=== PATIENT | female | born 1935 | race Asian ===

== ENCOUNTER 2018-09-15 22:39 | Emergency (ER) | payer MEDICARE, SELFPAY ==
[2018-09-15 22:43] VITALS: BP 168/101; PULSE 69; RESP 22; TEMP 36.8; O2SAT 98
--- NOTE | 2018-09-15 22:53 | DI.RAD.S_ITS ---
PROCEDURE: XR CHEST 1V INDICATIONS: chest pain TECHNIQUE: One view of the chest was acquired. COMPARISON: None. FINDINGS: Surgical changes and devices: None. Lungs and pleura: Lungs are clear. No pleural effusions or pneumothorax. Mediastinum: Mediastinal contours appear normal. Heart size is normal. Bones and chest wall: No suspicious bony lesions. Overlying soft tissues appear unremarkable. IMPRESSION: No acute disease Dictated by: David Paniagua M.D. on 09/16/2018 at 7:57 Approved by: David Paniagua M.D. on 09/16/2018 at 7:58
--- NOTE | 2018-09-15 23:03 | ED.CHESTPAIN ---
HPI - Chest Pain General Chief Complaint: Chest Pain Stated Complaint: chest pain Time Seen by Provider: 09/15/18 22:51 Source: patient and family Mode of arrival: ambulatory Limitations: no limitations History of Present Illness HPI narrative: patient is an 82-year-old female who presents with chest pain. His she has a history of diabetes and hypertension. According to her daughter she has had ongoing thoracic pain is for some time she has been ignoring it however today she says she also has chest pain that started about an hour ago. Seems to go through to her back she feels nauseated as patient is an extremely poor historian daughter is giving most of the information. Difficult to tell if she has had any shortness of breath. No known coronary artery disease. MD complaint: chest pain Duration: constant Related Data Home Medications Medication Instructions Recorded Confirmed CALCIUM CARBONATE/VITAMIN D3 1 cap PO Q DAY #0 08/07/11 (Liquid Calcium 600-Vit D3 Sfgl) [place]/Cu/Glucosamine HCl/M 1 tab PO BID #0 02/02/12 (#GLUCOSAMINE COMPLEX) Fish Oil (#FISH OIL) 1 iu PO BID #0 02/02/12 Previous Rx's Medication Instructions Recorded Test Strips - Freestyle 0 item BID #100 03/16/13 metformin [Glucophage] 0 PO SEE INSTRUCTIONS #150 tab 03/10/16 glipizide 10 mg PO BID #60 tab 04/25/16 Allergies Allergy/AdvReac Type Severity Reaction Status Date / Time lisinopril Allergy Verified 09/15/18 22:50 Penicillins Allergy Verified 09/15/18 22:50 Review of Systems Review of Systems ROS Unobtainable: All systems reviewed & are unremarkable except as noted in HPI and below Constitutional Denies chills, Denies fever(s), Denies lethargy and Denies weakness Cardiovascular Reports as per HPI Gastrointestinal Gastrointestinal: Denies abdominal pain, Reports nausea and Denies vomiting Integumentary/Breasts Denies pruritus, Denies erythema, Denies rash and Denies wounds Neurologic Denies weakness [facility] Surgical History Status post appendectomy Family History Mother Diabetes mellitus Family History Mother Diabetes mellitus Exam Initial Vital Signs Initial Vital Signs: Vital Signs Temperature 98.2 F 09/15/18 22:43 Pulse Rate 69 09/15/18 22:43 Respiratory Rate 22 09/15/18 22:43 Blood Pressure 168/101 H 09/15/18 22:43 Pulse Oximetry 98 09/15/18 22:43 GENERAL: a small petite female with eyes closed but following commands and answering question HEENT: Head atraumatic,EOMI, Neck is supple CARDIOVASCULAR: Regular rate and rhythm without murmurs, rubs or gallops. RESPIRATORY: Breath sounds equal bilaterally, no wheezes rales or rhonchi. ABDOMEN: Soft, nontender. Normoactive bowel sounds all 4 quadrants. No guarding or rebound. EXTREMITIES: Normal range of motion, no clubbing or edema. Neurovascularly intact NEUROLOGICAL: face is symmetric renal social worker strength equal moving all extremities SKIN: Warm, dry, no laceration, no petechiae, no rashes or lesions. Course Orders Ordered: ED Orders 09/15/18 22:53 XR chest 1V Stat 09/15/18 22:54 Complete Blood Count AUTO DIFF Stat Comprehensive Metabolic Panel Stat Lipase Stat Partial Thromboplastin Time Stat Prothrombin Time INR Stat Troponin & CK Cardiac Panel Stat 09/16/18 01:05 Troponin I Stat Vital Signs - 8 hr 09/15/18 22:43 09/15/18 23:31 09/16/18 00:51 Temperature 98.2 F Pulse Rate 69 63 65 Respiratory Rate 22 16 22 Blood Pressure 168/101 H Blood Pressure [Right Arm] 168/52 H 157/53 H Pulse Oximetry 98 100 100 09/16/18 02:30 Temperature Pulse Rate 76 Respiratory Rate 20 Blood Pressure 164/64 H Blood Pressure [Right Arm] Pulse Oximetry 98 MDM - Chest Pain Lab Data Attestation: I reviewed the patient's lab results. Result diagrams: 09/15/18 22:54 09/15/18 22:54 Lab Results 09/15/18 09/15/18 09/15/18 Range/Units 22:54 22:54 22:54 WBC 7.5 (4.5-11.0) X10^3/uL RBC 3.75 L (4.0-5.2) X10^6/uL Hgb 11.6 L (12.0-16.0) g/dL Hct 34.9 L (36-46) % MCV 93.1 (80-100) fL MCH 31.0 (26-34) PG MCHC 33.3 (30-36) % RDW 14.1 (11.6-14.8) % Plt Count 200 (150-400) X10^3/uL Neut % (Auto) Not Reportable Lymph % (Auto) Not Reportable [place] % (Auto) Not Reportable Eos % (Auto) Not Reportable Baso % (Auto) Not Reportable Lymph # (Auto) Not Reportable [place] # (Auto) Not Reportable Baso # (Auto) Not Reportable Total Counted 100 Seg Neutrophils % 21.0 L (38-70) % Lymphocytes % (Manual) 70.0 H (25-45) % Monocytes % (Manual) 7.0 (2-11) % Eosinophils % (Manual) 2.0 (2-4) % Neutrophils # (Manual) 1575 L (1060-0766) /uL RBC Morphology Normal morphology PT 9.7 L (10.1-12.7) SECONDS INR 0.9 (0.9-1.3) APTT 29 (26.4-36.2) SECONDS Sodium 139 (137-145) mmol/L Potassium 4.1 (3.4-5.1) mmol/L Chloride 102 (98-107) mmol/L Carbon Dioxide 27 (22-32) mmol/L BUN 19 H (7-17) mg/dL Creatinine 1.40 H (0.52-1.04) mg/dL Estimated GFR 36.2 L (>60) mL/min BUN/Creatinine Ratio 13.6 (6-22) Glucose 208 H (80-110) mg/dL Calcium 9.7 (8.4-10.2) mg/dL Total Bilirubin 0.3 (0.2-1.3) mg/dL AST 33 (14-36) IU/L ALT 25 (9-52) IU/L Alkaline Phosphatase 51 (38-126) U/L Total Creatine Kinase 52 (30-135) U/L CK-MB (CK-2) TNP CK-MB (CK-2) Rel Index TNP Troponin I < 0.012 (0.01-0.034) ng/mL Total Protein 8.1 (6.3-8.2) g/dL Albumin 4.5 (3.5-5.0) g/dL Globulin 3.6 (1.7-4.1) g/dL Albumin/Globulin Ratio 1.3 (1.0-2.8) Lipase 146 (23-300) U/L 02/14/19 Range/Units 01:05 WBC (4.5-11.0) X10^3/uL RBC (4.0-5.2) X10^6/uL Hgb (12.0-16.0) g/dL Hct (36-46) % MCV (80-100) fL MCH (26-34) PG MCHC (30-36) % RDW (11.6-14.8) % Plt Count (150-400) X10^3/uL Neut % (Auto) Lymph % (Auto) [place] % (Auto) Eos % (Auto) Baso % (Auto) Lymph # (Auto) [place] # (Auto) Baso # (Auto) Total Counted Seg Neutrophils % (38-70) % Lymphocytes % (Manual) (25-45) % Monocytes % (Manual) (2-11) % Eosinophils % (Manual) (2-4) % Neutrophils # (Manual) (8156-9394) /uL RBC Morphology PT (10.1-12.7) SECONDS INR (0.9-1.3) APTT (26.4-36.2) SECONDS Sodium (137-145) mmol/L Potassium (3.4-5.1) mmol/L Chloride (98-107) mmol/L Carbon Dioxide (22-32) mmol/L BUN (7-17) mg/dL Creatinine (0.52-1.04) mg/dL Estimated GFR (>60) mL/min BUN/Creatinine Ratio (6-22) Glucose (80-110) mg/dL Calcium (8.4-10.2) mg/dL Total Bilirubin (0.2-1.3) mg/dL AST (14-36) IU/L ALT (9-52) IU/L Alkaline Phosphatase (38-126) U/L Total Creatine Kinase (30-135) U/L CK-MB (CK-2) CK-MB (CK-2) Rel Index Troponin I < 0.012 (0.01-0.034) ng/mL Total Protein (6.3-8.2) g/dL Albumin (3.5-5.0) g/dL Globulin (1.7-4.1) g/dL Albumin/Globulin Ratio (1.0-2.8) Lipase (23-300) U/L Point of Care Testing Glucose POC 219 Imaging Data Chest x-ray: Attestation: I personally reviewed and interpreted this imaging study as follows: My impression: no acute cardiopulmonary process ECG Data Attestation: I personally reviewed and interpreted this ECG as follows: Interpretation: EKG 1.: Sinus rhythm rate 67 artifact noted no T-wave inversions or ST changes. [place] interval 204 no prior to compare EKG 2. Sinus rhythm rate 63 similar to previous no ST changes or T-wave inversions MDM Narrative Medical decision making narrative: patient suddenly said that she felt better. She apparently was dizzy is was not able to tell us that she is now awake alert sitting no longer has any chest discomfort or back discomfort. She is requesting to go home. EKG show no changes troponins are negative. I recommend that she follow up with her PCP. Discharge Plan Departure Patient Disposition: Home Clinical Impression: Vertigo, Atypical chest pain Discharge Date/Time: 09/16/18 02:00 Interventions: ED Discharge Assessment Last Done: 09/16/18 02:30 Instructions: DI for Atypical Chest Pain Activity Restrictions/Additional Instructions: *You have been diagnosed with vertigo, atypical chest pain *What to do: is continuing to have chest pain may require stress test with your primary care provider *Continue to take medications as directed *Follow up with your primary care provider in 2-3 days *Return to ER if you should have worsening chest pain persistent dizziness increased back pain weakness, passing out or any new, worsening or concerning symptoms Prescriptions: No Action CALCIUM CARBONATE/VITAMIN D3 (Liquid Calcium 600-Vit D3 Sfgl) 1 cap PO Q DAY Qty: 0 RF: 0 Fish Oil (#FISH OIL) 1 iu PO BID Qty: 0 RF: 0 [place]/Cu/Glucosamine HCl/M (#GLUCOSAMINE COMPLEX) 1 tab PO BID Qty: 0 RF: 0 Test Strips - Freestyle BID Qty: 100 RF: 99 metformin [Glucophage] 500 MG tablet PO SEE INSTRUCTIONS Qty: 150 RF: 0 glipizide 10 MG tablet 10 mg PO BID Qty: 60 RF: 0 Referrals: Cristela Wynne DO [Primary Care Provider] -
[2018-09-15 23:09] LABS: Add Manual Diff / Slide Review YES; Hematocrit 34.9 % (36-46); Hemoglobin 11.6 g/dL (12.0-16.0); INR 0.9 (0.9-1.3); Mean Corpuscular HGB Conc 33.3 % (30-36); Mean Corpuscular Volume 93.1 fL (80-100); Platelet Count 200 X10^3/uL (150-400); Prothrombin Time 9.7 SECONDS (10.1-12.7); Red Blood Cell Count 3.75 X10^6/uL (4.0-5.2); Red Cell Distribution Width 14.1 % (11.6-14.8); White Blood Cell Count 7.5 X10^3/uL (4.5-11.0)
[2018-09-15 23:12] LABS: PTT Partial Thromboplastin Tim 29 SECONDS (26.4-36.2)
[2018-09-15 23:13] LABS: Alanine Aminotransferase 25 IU/L (9-52); Albumin 4.5 g/dL (3.5-5.0); Albumin Globulin Ratio 1.3 (1.0-2.8); Alkaline Phosphatase 51 U/L (38-126); Aspartate Aminotransferase 33 IU/L (14-36); BUN Creatinine Ratio 13.6 (6-22); Bilirubin Total 0.3 mg/dL (0.2-1.3); Blood Urea Nitrogen 19 mg/dL (7-17); Calcium 9.7 mg/dL (8.4-10.2); Carbon Dioxide 27 mmol/L (22-32); Chloride 102 mmol/L (98-107); Creatine Kinase 52 U/L (30-135); Estimated Glomerular Filt Rate 36.2 mL/min (>60); Globulin 3.6 g/dL (1.7-4.1); Glucose 208 mg/dL (80-110); HEMOLYSIS < 15 (0-50); Lipase 146 U/L (23-300); Potassium 4.1 mmol/L (3.4-5.1); Sodium 139 mmol/L (137-145); Total Protein 8.1 g/dL (6.3-8.2)
[2018-09-15 23:24] LABS: Troponin I < 0.012 ng/mL (0.01-0.034)
[2018-09-15 23:30] LABS: Neutrophils Absolute Manual 1575 /uL (3000-5900); RBC Morphology Normal Morphology; Total Cells Counted 100
[2018-09-15 23:31] VITALS: BP 168/52; PULSE 63; RESP 16; O2SAT 100
--- NOTE | 2018-09-15 23:54 | PC.NURSE ---
patient states that she feels much better and is ready to go home. she reports that she no longer has chest pain, nausea or dizziness. provider aware and no new orders at this time.
[2018-09-16 00:51] VITALS: BP 157/53; PULSE 65; RESP 22; O2SAT 100
[2018-09-16 01:38] LABS: Troponin I < 0.012 ng/mL (0.01-0.034)
[2018-09-16 02:30] VITALS: BP 164/64; PULSE 76; RESP 20; O2SAT 98
== END 2018-09-16 02:00 | disposition home or self-care (01) ==
PROVIDERS: Emergency Provider Emergency Medicine; Family Provider Family Medicine; PCP Family Medicine
DX: R42 Dizziness and giddiness (principal); R07.89 Other chest pain
CPT/HCPCS: 36415; 36591; 71045; 80053; 82550; 82553; 82962; 83690; 84484; 85025; 85610; 85730; 93005; 99283; 99285

== ENCOUNTER 2019-04-21 21:26 | Emergency (ER) | payer MEDICARE, SELFPAY ==
[2019-04-21 21:34] VITALS: BP 190/67; PULSE 65; RESP 16; TEMP 36.8; O2SAT 100; BMI 23.6
[2019-04-21 21:44] LABS: RBC Urine None Seen (0-5/HPF)
--- NOTE | 2019-04-21 21:44 | ED_ITS ---
HPI - Abdominal Pain General Chief Complaint: Abdominal Pain Stated Complaint: stomach pains Time Seen by Provider: 04/21/19 21:41 Source: patient and family Mode of arrival: Wheelchair Limitations: no limitations History of Present Illness HPI narrative: Patient is a 83-year-old female who presents with abdominal pain. It started just a few hours ago after she ate about 10 pieces of some fruit. The daughter ate the same free currently at 2 pieces and not feel asleep. She feels like her abdomen is distended and she is nauseous. Across her mid abdomen. She had a normal bowel movement and has felt normal throughout the day until now. She nauseous but denies any vomiting she has not had fever chills she denies any chest pain or shortness of breath. MD complaint: abdominal pain Onset (ago): hour(s) Pain Consistency: constant Location: periumbilical Severity: moderate Quality: cramping Migration to: no migration Relieving factors: nothing Exacerbating factors: nothing Related Data Home Medications Medication Instructions Recorded Confirmed calcium carb-vit D3-magnesium 2 cap PO DAILY 04/21/19 04/21/19 glipizide 10 mg PO BID 04/21/19 04/21/19 losartan 50 mg PO BID 04/21/19 04/21/19 lovastatin 40 mg PO DAILY 04/21/19 04/21/19 metformin 1,000 mg PO BID 04/21/19 04/21/19 metoprolol tartrate 25 mg PO BID 04/21/19 04/21/19 pioglitazone 15 mg PO DAILY 04/21/19 04/21/19 Allergies Allergy/AdvReac Type Severity Reaction Status Date / Time lisinopril Allergy Verified 04/21/19 21:39 Penicillins Allergy Verified 04/21/19 21:39 Review of Systems Review of Systems Narrative: GENERAL: Denies chills, fatigue, malaise, fever, sweats, travel HEENT: Denies sinus pain, ear pain, sore throat, difficulty swallowing, neck pain RESPIRATORY: Denies dyspnea, cough, wheezing, hemoptysis, sputum. CARDIOVASCULAR: Denies chest pain, palpitations, orthopnea, edema GASTROINTESTINAL: See HPI : Denies dysuria, frequency, incontinence, hematuria, urinary retention, flank pain. MUSCULOSKELETAL: Denies weakness, joint pain, or bony pain SKIN: No rash, no erythema, no pruritus NEUROLOGIC: Denies weakness, dizziness, headache, numbness, change in speech, confusion PSYCHIATRIC: No concerning psychosocial issues. 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) Stage 3 chronic kidney disease (07/04/13) Vitamin D deficiency (07/04/13) Surgical History Status post appendectomy Family History Mother Diabetes mellitus Social History Smoking Status: Unknown if ever smoked Family History Mother Diabetes mellitus Social History Smoking Status: Unknown if ever smoked Exam Initial Vital Signs Initial Vital Signs: Vital Signs Temperature 98.3 F 04/21/19 21:34 Pulse Rate 65 04/21/19 21:34 Respiratory Rate 16 04/21/19 21:34 Blood Pressure 190/67 H 04/21/19 21:34 Pulse Oximetry 100 04/21/19 21:34 GENERAL: Alert fatigue elderly female appears in discomfort HEENT: Head atraumatic,EOMI, pupils reactive, face symmetric, moist mucous membranes CARDIOVASCULAR: Regular rate and rhythm without murmurs, rubs or gallops. RESPIRATORY: Breath sounds equal bilaterally, no wheezes rales or rhonchi. ABDOMEN: Soft, distended, tender across the mid abdomen both right and left and central. No guarding no rebound no right upper quadrant : No CVA tenderness EXTREMITIES: Normal range of motion, no clubbing or edema. Neurovascularly intact NEUROLOGICAL: Alert and oriented normal speech Cranial nerves II through XII gr ossly intact. SKIN: Warm, dry, no laceration, no petechiae, no rashes or lesions. Course Orders Ordered: ED Orders 04/21/19 21:31 Urine Culture Stat Urine Microscopic Stat 04/21/19 21:39 EKG-12 Lead Stat 04/21/19 21:40 Complete Blood Count AUTO DIFF Stat Comprehensive Metabolic Panel Stat Lipase Stat Partial Thromboplastin Time Stat Prothrombin Time INR Stat 04/21/19 21:53 CT abdomen pelvis wo con Stat Discontinued Medications Morphine Sulfate (Morphine) 2 mg IV NOW ONE Stop: 04/21/19 21:54 Last Admin: 04/21/19 22:01 Dose: 2 mg Documented by: CIELO Ondansetron HCl (Zofran) 4 mg IV NOW ONE Stop: 04/21/19 21:54 Last Admin: 04/21/19 22:00 Dose: 4 mg Documented by: CIELO Vital Signs Vital signs: Vital Signs - 8 hr 04/21/19 21:34 04/21/19 22:00 04/21/19 22:26 Temperature 98.3 F Pulse Rate 65 57 L 60 Respiratory Rate 16 14 17 Blood Pressure 190/67 H Blood Pressure [Left Arm] 188/47 H 182/44 H Pulse Oximetry 100 100 99 04/21/19 23:00 Temperature Pulse Rate 60 Respiratory Rate 20 Blood Pressure Blood Pressure [Left Arm] 147/37 H Pulse Oximetry 99 MDM - Abdominal Pain Lab Data Attestation: I reviewed the patient's lab results. Result diagrams: 04/21/19 21:40 04/21/19 21:40 Labs: Lab Results 04/21/19 04/21/19 04/21/19 Range/Units 21:31 21:40 21:40 WBC 8.5 (4.5-11.0) X10^3/uL RBC 3.53 L (4.0-5.2) X10^6/uL Hgb 11.0 L (12.0-16.0) g/dL Hct 32.5 L (36-46) % MCV 92.1 (80-100) fL MCH 31.3 (26-34) PG MCHC 34.0 (30-36) % RDW 13.2 (11.6-14.8) % Plt Count 210 (150-400) X10^3/uL Neut % (Auto) 29.0 L (50-75) % Lymph % (Auto) 62.8 H (25-40) % [place] % (Auto) 4.8 (3-14) % Eos % (Auto) 2.4 (2-4) % Baso % (Auto) 1.0 (0-2) % Neut # (Auto) 2500 (0789-4076) /uL Lymph # (Auto) 5300 H (0592-9934) /uL [place] # (Auto) 400 (0-900) /uL Eos # (Auto) 200 (0-450) /uL Baso # (Auto) 100 (0-100) /uL PT 9.8 L (10.1-12.7) SECONDS INR 0.9 (0.9-1.3) APTT 31 D (26.4-36.2) SECONDS Sodium (137-145) mmol/L Potassium (3.4-5.1) mmol/L Chloride (98-107) mmol/L Carbon Dioxide (22-32) mmol/L BUN (7-17) mg/dL Creatinine (0.52-1.04) mg/dL Estimated GFR (>60) mL/min BUN/Creatinine Ratio (6-22) Glucose (80-110) mg/dL Calcium (8.4-10.2) mg/dL Total Bilirubin (0.2-1.3) mg/dL AST (14-36) IU/L ALT (9-52) IU/L Alkaline Phosphatase (38-126) U/L Total Protein (6.3-8.2) g/dL Albumin (3.5-5.0) g/dL Globulin (1.7-4.1) g/dL Albumin/Globulin Ratio (1.0-2.8) Lipase (23-300) U/L Urine RBC None seen (0-5/HPF) Urine WBC 10-30/hpf H (0-5/HPF) Ur Squamous Epith Cells 1-5 /hpf (0-5/HPF) Urine Bacteria Moderate (10-30) H (None) Ur Culture Indicated? Specimen cultured 04/21/19 Range/Units 21:40 WBC (4.5-11.0) X10^3/uL RBC (4.0-5.2) X10^6/uL Hgb (12.0-16.0) g/dL Hct (36-46) % MCV (80-100) fL MCH (26-34) PG MCHC (30-36) % RDW (11.6-14.8) % Plt Count (150-400) X10^3/uL Neut % (Auto) (50-75) % Lymph % (Auto) (25-40) % [place] % (Auto) (3-14) % Eos % (Auto) (2-4) % Baso % (Auto) (0-2) % Neut # (Auto) (8525-6249) /uL Lymph # (Auto) (6339-9135) /uL [place] # (Auto) (0-900) /uL Eos # (Auto) (0-450) /uL Baso # (Auto) (0-100) /uL PT (10.1-12.7) SECONDS INR (0.9-1.3) APTT (26.4-36.2) SECONDS Sodium 138 (137-145) mmol/L Potassium 4.3 (3.4-5.1) mmol/L Chloride 102 (98-107) mmol/L Carbon Dioxide 28 (22-32) mmol/L BUN 20 H (7-17) mg/dL Creatinine 1.10 H (0.52-1.04) mg/dL Estimated GFR 47.7 L (>60) mL/min BUN/Creatinine Ratio 18.2 (6-22) Glucose 143 H (80-110) mg/dL Calcium 9.3 (8.4-10.2) mg/dL Total Bilirubin 0.2 (0.2-1.3) mg/dL AST 31 (14-36) IU/L ALT 13 (9-52) IU/L Alkaline Phosphatase 44 (38-126) U/L Total Protein 7.9 (6.3-8.2) g/dL Albumin 4.4 (3.5-5.0) g/dL Globulin 3.5 (1.7-4.1) g/dL Albumin/Globulin Ratio 1.3 (1.0-2.8) Lipase 137 (23-300) U/L Urine RBC (0-5/HPF) Urine WBC (0-5/HPF) Ur Squamous Epith Cells (0-5/HPF) Urine Bacteria (None) Ur Culture Indicated? Point of care testing: Urine Dip Bedside Urine Glucose Negative Bedside Urine Bilirubin - Negative Bedside Urine Ketone - Negative Urine Specific [place] 1.010 Bedside Urine Occult Blood - Negative Bedside Urine pH 6 Bedside Urine Protein - Negative Bedside Urine Urobilinogen - Negative Bedside Urine Nitrite - Negative Bedside Urine Leukocytes + [address] scan - abdomen: Radiologist's impression: medical transcription radiology report: Fluid filled mildly dilated loops of small bowel within the pelvis. This could represent moderate ileus versus early or partial. No clear transition. Cholelithiasis. MDM Narrative Medical decision making narrative: Patient is tolerating water in fact asking for. She has no right upper quadrant pain normal bilirubin and normal liver enzymes. Cholelithiasis less likely to be causing her problem today. She has an ileus and early small-bowel obstruction however not vomiting. Blood work overall reassuring. At this time I recommend she go home with clear liquid diet and return if pain is worsening. I discussed all findings with the patient and daughter, Education has been performed regarding treatment plan, diagnosis, warning signs and symptoms and all concerns have been addressed. Verbally agree with and understood all of the above. Discharge Plan Departure Patient Disposition: Home Clinical Impression: Ileus Discharge Date/Time: 04/21/19 23:35 Instructions: Ileus, Clear Liquid Diet Activity Restrictions/Additional Instructions: *You have been diagnosed with ileus *What to do: Recommend clear liquid diet for the next 1-2 days. Or in till abdominal pain improves. *Continue to take medications as directed *Follow up with your primary care provider in 2-3 days *Return to ER if you should have increasing pain persistent vomiting, inability to tolerate fluids or any new, worsening or concerning symptoms Prescriptions: No Action losartan 50 mg tablet 50 mg PO BID RF: 0 pioglitazone 15 mg tablet 15 mg PO DAILY RF: 0 metformin 500 mg tablet 1,000 mg PO BID RF: 0 glipizide 10 mg tablet 10 mg PO BID RF: 0 lovastatin 40 mg tablet 40 mg PO DAILY RF: 0 metoprolol tartrate 25 mg tablet 25 mg PO BID RF: 0 calcium carb-vit D3-magnesium 250-200-125 mg-unit-mg Capsule 2 cap PO DAILY RF: 0 Referrals: Cristela Wynne DO [Primary Care Provider] - Dimple Rivera PA-C [Non-Staff] -
[2019-04-21 21:50] LABS: Squamous Epithelial Cell Urine 1-5 /HPF (0-5/HPF); WBC Urine 10-30/HPF (0-5/HPF)
[2019-04-21 21:51] LABS: Bacteria Urine Moderate (10-30); Culture Indicated Urine Specimen Cultured
--- NOTE | 2019-04-21 21:53 | DI.CT.S_ITS ---
PROCEDURE: CT ABDOMEN PELVIS WO CON INDICATIONS: ab pain nausea TECHNIQUE: Noncontrast 5 mm thick sections acquired from the diaphragms to the symphysis. 5 mm coronal and sagittal reformats were then performed. For radiation dose reduction, the following was used: automated exposure control, adjustment of mA and/or kV according to patient size. COMPARISON: None. FINDINGS: Image quality: Excellent. ABDOMEN: Lung bases: Lung bases are clear except for a small degree of lung parenchymal scarring medial lung bases.. Heart size is normal. Coronary artery calcifications are prominent. Solid organs: Liver is normal in size. Gallbladder contains a large 2.2 cm densely calcified gallstone showing no evidence of obstruction to the gallbladder or adjacent inflammation. Pancreas is normal in contours. Spleen is normal in size but contains several punctate calcifications consistent with old granulomatous disease. No adrenal nodules. Kidneys are normal in size, without hydronephrosis or nephrolithiasis. Vascular calcifications are prominent including several near the renal pelvis bilaterally. Peritoneum and bowel: Unenhanced bowel loops demonstrate normal wall thickness and caliber. No free fluid or air. Nodes and vessels: No retroperitoneal or mesenteric adenopathy by size criteria. Aorta and inferior vena cava are normal in caliber. Aortic and aortic branch atherosclerotic calcification is prominent in this patient without evidence of aneurysm or dissection. Miscellaneous: No ventral hernias. PELVIS: Genitourinary: Bladder wall thickness is normal. Miscellaneous: No inguinal hernias or adenopathy. A source of reported low abdominal pain bilaterally with nausea is not found. Bones: No suspicious bony lesions. No vertebral body compression fractures. IMPRESSION: The study is somewhat diminished in accuracy by absence of both oral and intravenous contrast within the constraints of the examination no acute disease is found. Note is made of a 2.2 cm large gallstone within the gallbladder lumen without biliary obstruction or adjacent cholecystitis. Relatively prominent atherosclerotic calcification is seen within the aorta and its main tributaries including coronary artery calcifications. No aneurysm or dissection is found. The patient reported maximal pain and nausea centered within the pelvis, and through the pelvis there is no evidence of diverticulitis or appendicitis. Dictated by: Lazarus Scott M.D. on 04/22/2019 at 8:25 Approved by: Lazarus Scott M.D. on 04/22/2019 at 8:32
[2019-04-21 21:56] LABS: Add Manual Diff / Slide Review NO; Basophils Absolute Auto 100 /uL (0-100); Eosinophils Absolute Auto 200 /uL (0-450); Eosinophils Percent Auto 2.4 % (2-4); Hematocrit 32.5 % (36-46); Lymphocytes Absolute Auto 5300 /uL (1100-4500); Lymphocytes Percent Auto 62.8 % (25-40); Mean Corpuscular Hemoglobin 31.3 PG (26-34); Mean Corpuscular Volume 92.1 fL (80-100); Monocytes Absolute Auto 400 /uL (0-900); Monocytes Percent Auto 4.8 % (3-14); Neutrophils Absolute Auto 2500 /uL (1500-7000); Platelet Count 210 X10^3/uL (150-400); Red Blood Cell Count 3.53 X10^6/uL (4.0-5.2); Red Cell Distribution Width 13.2 % (11.6-14.8); White Blood Cell Count 8.5 X10^3/uL (4.5-11.0)
[2019-04-21 21:58] LABS: INR 0.9 (0.9-1.3); Prothrombin Time 9.8 SECONDS (10.1-12.7)
[2019-04-21 22:00] VITALS: BP 188/47; PULSE 57; RESP 14; O2SAT 100
[2019-04-21] MEDS: ONDANSETRON 4 MG/2 ML INJ IV (22:00)
[2019-04-21 22:01] LABS: PTT Partial Thromboplastin Tim 31 SECONDS (26.4-36.2)
[2019-04-21] MEDS: MORPHINE 2 MG/ML INJ IV (22:01)
[2019-04-21 22:03] LABS: Alanine Aminotransferase 13 IU/L (9-52); Albumin 4.4 g/dL (3.5-5.0); Albumin Globulin Ratio 1.3 (1.0-2.8); Alkaline Phosphatase 44 U/L (38-126); Aspartate Aminotransferase 31 IU/L (14-36); BUN Creatinine Ratio 18.2 (6-22); Bilirubin Total 0.2 mg/dL (0.2-1.3); Blood Urea Nitrogen 20 mg/dL (7-17); Calcium 9.3 mg/dL (8.4-10.2); Carbon Dioxide 28 mmol/L (22-32); Chloride 102 mmol/L (98-107); Estimated Glomerular Filt Rate 47.7 mL/min (>60); Globulin 3.5 g/dL (1.7-4.1); Glucose 143 mg/dL (80-110); HEMOLYSIS 27 (0-50); Lipase 137 U/L (23-300); Potassium 4.3 mmol/L (3.4-5.1); Sodium 138 mmol/L (137-145); Total Protein 7.9 g/dL (6.3-8.2)
--- NOTE | 2019-04-21 22:13 | PC.NURSE ---
Family member is on facetime and she is refusing CT scan for pt. Discussed kidney concerns. I informed her that we had tested her kidney function and it was wnl for the exam. She states 'do an xray instead'. I then asked Dr. Gaitan to speak w/ family.
[2019-04-21 22:26] VITALS: BP 182/44; PULSE 60; RESP 17; O2SAT 99
[2019-04-21 23:00] VITALS: BP 147/37; PULSE 60; RESP 20; O2SAT 99
--- NOTE | 2019-04-21 23:19 | PC.NURSE ---
Patient refusing offers for pain meds or nausea medication. Pt states she has no nausea and her pain is minimal. Dr. Gaitan at bedside to discuss CT results. Ok per Dr. Gaitan for pt to drink some water.
== END 2019-04-21 23:35 | disposition home or self-care (01) ==
PROVIDERS: Emergency Provider Emergency Medicine; Family Provider Family Medicine; PCP Family Medicine
DX: K56.7 Ileus, unspecified (principal)
CPT/HCPCS: 36591; 74176; 80053; 81003; 81015; 83690; 85025; 85610; 85730; 87077; 87086; 87186; 93005; 96374; 96375; 99283; 99285; J2270; J2405

== ENCOUNTER 2019-09-13 18:34 | Emergency (ER) | payer MEDICARE, SELFPAY ==
[2019-09-13 18:40] VITALS: BP 138/54; PULSE 86; RESP 18; TEMP 38.3; O2SAT 96
--- NOTE | 2019-09-13 18:45 | DI.RAD.S_ITS ---
PROCEDURE: XR CHEST 1V INDICATIONS: cough and fever TECHNIQUE: One view of the chest was acquired. COMPARISON: [facility], CR, XR CHEST 1V, 09/15/2018, 22:59. FINDINGS: Surgical changes and devices: None. Lungs and pleura: Lungs are clear. No pleural effusions or pneumothorax. Mediastinum: Mediastinal contours appear normal. Heart size is normal. Bones and chest wall: No suspicious bony lesions. Overlying soft tissues appear unremarkable. IMPRESSION: Normal chest, stable. Dictated by: Shy Savage M.D. on 09/13/2019 at 20:10 Approved by: Shy Savage M.D. on 09/13/2019 at 20:11
[2019-09-13 18:52] VITALS: TEMP 38.3
[2019-09-13] MEDS: ACETAMINOPHEN 325 MG TABLET 650 MG PO (18:52)
[2019-09-13 19:17] LABS: Influenza A - CEPHEID Flu A POSITIVE (NEGATIVE); Influenza B - CEPHEID Flu B NEGATIVE (NEGATIVE)
--- NOTE | 2019-09-13 19:20 | ED.FEVER ---
HPI - Fever General Chief Complaint: Fever Stated Complaint: Collapsed Earlier, Condition Worsening Time Seen by Provider: 09/13/19 18:43 Source: patient Mode of arrival: Wheelchair Limitations: no limitations History of Present Illness HPI Narrative: 83-year-old female nonsmoker with history of diabetes and hypertension presents with headache, sore throat some dry cough, fatigue and body aches since yesterday. She felt unwell this morning and got a bit lightheaded and eased herself to the ground, suffering no injury. She was seen and evaluated by her primary care provider and had some blood work drawn which was apparently normal. She was sent home and continues to feel unwell hence decision to be evaluated. MD complaint: fever Onset (ago): day(s) Temperature Source: oral Associated symptoms: chills, headache, sore throat and cough Relieving factors: nothing Exacerbating factors: nothing Treatments prior to arrival fever: none Related Data Home Medications Medication Instructions Recorded Confirmed calcium carb-vit D3-magnesium 2 cap PO DAILY 04/21/19 04/21/19 glipizide 10 mg PO BID 04/21/19 04/21/19 losartan 50 mg PO BID 04/21/19 04/21/19 lovastatin 40 mg PO DAILY 04/21/19 04/21/19 metformin 1,000 mg PO BID 04/21/19 04/21/19 metoprolol tartrate 25 mg PO BID 04/21/19 04/21/19 pioglitazone 15 mg PO DAILY 04/21/19 04/21/19 Previous Rx's Medication Instructions Recorded oseltamivir [Tamiflu] 30 mg PO DAILY #4 cap 09/13/19 Allergies Allergy/AdvReac Type Severity Reaction Status Date / Time lisinopril Allergy Verified 04/21/19 21:39 Penicillins Allergy Verified 04/21/19 21:39 Review of Systems Constitutional Constitutional: Reports chills, Reports fatigue, Reports fever(s), Denies frequent falls, Reports headache(s), Denies lethargy and Reports weakness Eyes Eyes: Denies change in vision, Denies eye discharge, Denies irritation and Denies loss of vision ENT Ears, Nose, Mouth, and Throat: Denies change in voice, Denies dizziness, Reports headache(s), Denies neck pain, Reports sore throat and Denies throat swelling Cardiovascular Cardiovascular: Denies chest pain, Denies irregular heart rhythm, Denies lightheadedness, Denies palpitations, Denies dyspnea, Denies dyspnea on exertion and Denies orthopnea Respiratory Respiratory: Reports cough, Denies dyspnea, Denies dyspnea on exertion and Denies wheezing Gastrointestinal Gastrointestinal: Denies abdominal pain, Denies change in bowel habits, Denies diarrhea, Denies nausea and Denies vomiting Genitourinary Genitourinary: Denies hematuria, Denies flank pain, Denies urinary incontinence and Denies urinary urgency Musculoskeletal Musculoskeletal: Denies back pain, Denies muscle weakness, Denies neck pain, Denies numbness and Denies tingling Integumentary/Breasts Skin/Breast: Denies pruritus, Denies erythema, Denies rash and Denies wounds Neurologic Neurologic: Denies behavioral changes, Denies confusion, Denies dizziness, Denies frequent falls, Reports headache(s), Denies loss of vision, Denies numbness, Denies tingling and Reports weakness Psychiatric Psychiatric: Denies anxiety, Denies behavioral changes, Denies confusion, Denies depression, Denies homicidal ideation and Denies suicidal ideation Endocrine Endocrine: Reports fatigue, Denies flushing and Denies palpitations Hematologic/Lymphatic Hematologic/Lymphatic: Denies easy bruising Allergic/Immunologic Allergic/Immunologic: Denies urticaria, Denies throat swelling and Denies wheezing Patient History Medical History Cataract (04/20/14) Cobalamin deficiency (07/04/13) Hypertension (Acute) Mild aortic sclerosis (04/20/14) 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 Well-nourished, well-developed patient, in mild distress. Resting, most of HPI from family. HEAD: Atraumatic. Normocephalic. EYES: Pupils equal round and reactive. Extraocular motions intact. No scleral icterus. No injection or drainage. ENT: Nose without bleeding, purulent drainage. Throat without erythema, tonsillar hypertrophy or exudate. Airway patent. NECK: Trachea midline. Non tender CARDIOVASCULAR: Regular rate and rhythm without murmurs, gallops, or rubs. RESPIRATORY: Clear to auscultation. Breath sounds equal bilaterally. No wheezes, rales, or rhonchi. GASTROINTESTINAL: Abdomen soft, non-tender, nondistended. EXTREMITIES: No edema or joint tenderness. BACK: Nontender without deformity or crepitance. No flank tenderness. SKIN: No rash or erythema of visible areas Initial Vital Signs Initial Vital Signs: Vital Signs Temperature 101.0 F H 09/13/19 18:40 Pulse Rate 86 09/13/19 18:40 Respiratory Rate 18 09/13/19 18:40 Blood Pressure 138/54 L 09/13/19 18:40 Pulse Oximetry 96 09/13/19 18:40 Course Orders Ordered: ED Orders 09/13/19 19:30 Complete Blood Count AUTO DIFF Stat Comprehensive Metabolic Panel Stat Lactate (Lactic Acid) Stat Lipase Stat Partial Thromboplastin Time Stat Procalcitonin Stat Prothrombin Time INR Stat Troponin & CK Cardiac Panel Stat 09/13/19 20:05 Blood Culture Stat Discontinued Medications Acetaminophen (Tylenol) 650 mg PO NOW ONE Stop: 09/13/19 18:46 Last Admin: 09/13/19 18:52 Dose: 650 mg Documented by: CIELO Sodium Chloride (Normal Saline 0.9%) 1,000 mls @ 1,000 mls/hr IV BOLUS ONE Stop: 09/13/19 20:17 Last Admin: 09/13/19 19:20 Dose: Not Given Documented by: CIELO Sodium Chloride (Normal Saline 0.9%) 1,000 mls @ 150 mls/hr IV BOLUS ONE Stop: 09/14/19 01:57 Last Infusion: 09/13/19 21:00 Dose: 0 mls/hr Documented by: Admin: 09/13/19 20:02 Dose: 150 mls/hr Documented by: LIBRA Oseltamivir Phosphate (Tamiflu) 75 mg PO NOW ONE Stop: 09/13/19 20:18 Last Admin: 09/13/19 20:39 Dose: 75 mg Documented by: LEE Vital Signs Vital signs: Vital Signs - 8 hr 09/13/19 20:10 09/13/19 20:30 09/13/19 21:00 Temperature 98.8 F Pulse Rate 78 73 Respiratory Rate 18 Blood Pressure 131/59 L Blood Pressure [Right Arm] 129/79 Pulse Oximetry 99 MDM - Fever Lab Data Result diagrams: 09/13/19 19:30 09/13/19 19:30 Labs: Lab Results 09/13/19 09/13/19 09/13/19 Range/Units 18:43 19:30 19:30 WBC 7.6 (4.5-11.0) X10^3/uL RBC 3.22 L (4.0-5.2) X10^6/uL Hgb 10.1 L (12.0-16.0) g/dL Hct 30.0 L (36-46) % MCV 93.2 (80-100) fL MCH 31.3 (26-34) PG MCHC 33.6 (30-36) % RDW 13.4 (11.6-14.8) % Plt Count 177 (150-400) X10^3/uL Neut % (Auto) 53.1 (50-75) % Lymph % (Auto) 34.7 (25-40) % [place] % (Auto) 10.1 (3-14) % Eos % (Auto) 1.4 L (2-4) % Baso % (Auto) 0.7 (0-2) % Neut # (Auto) 4100 (0760-7113) /uL Lymph # (Auto) 2700 (4181-0466) /uL [place] # (Auto) 800 (0-900) /uL Eos # (Auto) 100 (0-450) /uL Baso # (Auto) 100 (0-100) /uL PT 11.5 (10.1-12.7) SECONDS INR 1.0 (0.9-1.3) APTT 28 D (26.4-36.2) SECONDS Sodium (137-145) mmol/L Potassium (3.4-5.1) mmol/L Chloride (98-107) mmol/L Carbon Dioxide (22-32) mmol/L BUN (7-17) mg/dL Creatinine (0.52-1.04) mg/dL Estimated GFR (>60) mL/min BUN/Creatinine Ratio (6-22) Glucose (80-110) mg/dL Lactate (0.7-2.1) mmol/L Calcium (8.4-10.2) mg/dL Total Bilirubin (0.2-1.3) mg/dL AST (14-36) IU/L ALT (<35) IU/L Alkaline Phosphatase (38-126) U/L Total Creatine Kinase (30-135) U/L CK-MB (CK-2) CK-MB (CK-2) Rel Index Troponin I (0.01-0.034) ng/mL Total Protein (6.3-8.2) g/dL Albumin (3.5-5.0) g/dL Globulin (1.7-4.1) g/dL Albumin/Globulin Ratio (1.0-2.8) Lipase (23-300) U/L Procalcitonin (<0.5) ng/mL Influenza A (RT-PCR) Flu a positive H (NEGATIVE) Influenza B (RT-PCR) Flu b negative (NEGATIVE) 09/13/19 09/13/19 09/13/19 Range/Units 19:30 19:30 19:30 WBC (4.5-11.0) X10^3/uL RBC (4.0-5.2) X10^6/uL Hgb (12.0-16.0) g/dL Hct (36-46) % MCV (80-100) fL MCH (26-34) PG MCHC (30-36) % RDW (11.6-14.8) % Plt Count (150-400) X10^3/uL Neut % (Auto) (50-75) % Lymph % (Auto) (25-40) % [place] % (Auto) (3-14) % Eos % (Auto) (2-4) % Baso % (Auto) (0-2) % Neut # (Auto) (4557-6976) /uL Lymph # (Auto) (6087-0154) /uL [place] # (Auto) (0-900) /uL Eos # (Auto) (0-450) /uL Baso # (Auto) (0-100) /uL PT (10.1-12.7) SECONDS INR (0.9-1.3) APTT (26.4-36.2) SECONDS Sodium 138 (137-145) mmol/L Potassium 4.0 (3.4-5.1) mmol/L Chloride 104 (98-107) mmol/L Carbon Dioxide 25 (22-32) mmol/L BUN 15 (7-17) mg/dL Creatinine 1.20 H (0.52-1.04) mg/dL Estimated GFR 43.1 L (>60) mL/min BUN/Creatinine Ratio 12.5 (6-22) Glucose 151 H (80-110) mg/dL Lactate 0.8 (0.7-2.1) mmol/L Calcium 9.3 (8.4-10.2) mg/dL Total Bilirubin 0.3 (0.2-1.3) mg/dL AST 35 (14-36) IU/L ALT 19 (<35) IU/L Alkaline Phosphatase 39 (38-126) U/L Total Creatine Kinase 47 (30-135) U/L CK-MB (CK-2) TNP CK-MB (CK-2) Rel Index TNP Troponin I 0.020 (0.01-0.034) ng/mL Total Protein 7.2 (6.3-8.2) g/dL Albumin 4.1 (3.5-5.0) g/dL Globulin 3.1 (1.7-4.1) g/dL Albumin/Globulin Ratio 1.3 (1.0-2.8) Lipase 84 (23-300) U/L Procalcitonin 0.07 (<0.5) ng/mL Influenza A (RT-PCR) (NEGATIVE) Influenza B (RT-PCR) (NEGATIVE) Imaging Data Chest x-ray: Radiologist's Impression: [address] [address] XRay Report Signed Patient: Norma Gee RMR#: [id number] : 8Acct:[id number] Age/Sex: 83 / FDate of Service: 09/13/19 Loc: ED Accession Number: [id number] Procedure: XR chest 1V Ordering Provider: Luc Neves D.O. PROCEDURE: XR CHEST 1V INDICATIONS: cough and fever TECHNIQUE: One view of the chest was acquired. COMPARISON: [facility], CR, XR CHEST 1V, 09/15/2018, 22:59. FINDINGS: Surgical changes and devices: None. Lungs and pleura: Lungs are clear. No pleural effusions or pneumothorax. Mediastinum: Mediastinal contours appear normal. Heart size is normal. Bones and chest wall: No suspicious bony lesions. Overlying soft tissues appear unremarkable. IMPRESSION: Normal chest, stable. Dictated by: Shy Savage M.D. on 09/13/2019 at 20:10 Approved by: Shy Savage M.D. on 09/13/2019 at 20:11 [facility] Narrative Medical decision making narrative: Patient has sudden onset of flu-like symptoms. She has reasuring labs and vitals. CXR shows no pneumonia. She requires no supplemental oxygen. SHe is able to safely ambulate, tolerate orals, and has good social support. Creatinine clearance calculated and renal dosing for tamiflu used. Return precautions given, questions answered to their apparent satisfaction Discharge Plan Departure Patient Disposition: Home Clinical Impression: Influenza A Discharge Date/Time: 09/13/19 21:02 Instructions: DI for Influenza -- Adult Activity Restrictions/Additional Instructions: *You have been diagnosed with [influenza a] *What to do: *Take medications as directed *Follow up with your primary care provider in 2-3 days, call for an appointment. Let them know you were seen in the Emergency Department and that we ask that you be seen in follow up *Return to ER if you should have any new, worsening or concerning symptoms, such as [ ] Prescriptions: New oseltamivir [Tamiflu] 30 mg capsule 30 mg PO DAILY Qty: 4 RF: 0 No Action losartan 50 mg tablet 50 mg PO BID RF: 0 pioglitazone 15 mg tablet 15 mg PO DAILY RF: 0 metformin 500 mg tablet 1,000 mg PO BID RF: 0 glipizide 10 mg tablet 10 mg PO BID RF: 0 lovastatin 40 mg tablet 40 mg PO DAILY RF: 0 metoprolol tartrate 25 mg tablet 25 mg PO BID RF: 0 calcium carb-vit D3-magnesium 250-200-125 mg-unit-mg Capsule 2 cap PO DAILY RF: 0 Referrals: Cristela Wynne DO [Primary Care Provider] -
[2019-09-13 19:40] VITALS: BP 131/59; PULSE 78; RESP 22; O2SAT 96
[2019-09-13 19:56] LABS: Add Manual Diff / Slide Review NO; Basophils Absolute Auto 100 /uL (0-100); Basophils Percent Auto 0.7 % (0-2); Eosinophils Absolute Auto 100 /uL (0-450); Eosinophils Percent Auto 1.4 % (2-4); Hemoglobin 10.1 g/dL (12.0-16.0); Lymphocytes Absolute Auto 2700 /uL (1100-4500); Lymphocytes Percent Auto 34.7 % (25-40); Mean Corpuscular HGB Conc 33.6 % (30-36); Mean Corpuscular Hemoglobin 31.3 PG (26-34); Mean Corpuscular Volume 93.2 fL (80-100); Monocytes Absolute Auto 800 /uL (0-900); Monocytes Percent Auto 10.1 % (3-14); Neutrophils Absolute Auto 4100 /uL (1500-7000); Neutrophils Percent Auto 53.1 % (50-75); Platelet Count 177 X10^3/uL (150-400); Red Blood Cell Count 3.22 X10^6/uL (4.0-5.2); Red Cell Distribution Width 13.4 % (11.6-14.8); White Blood Cell Count 7.6 X10^3/uL (4.5-11.0)
--- NOTE | 2019-09-13 19:56 | PC.NURSE ---
Patient reports sore throat and dry cough today with fever, weakness/malaise, and syncopal episode this morning. Denies any injury or pain from fall, did not hit head. Seen at clinic with full work up and no results. Came here because she spike a fever of 101 and became less responsive per family. She arouses to voice and then goes back to sleep. Answers questions appropriately.
[2019-09-13 20:00] LABS: Prothrombin Time 11.5 SECONDS (10.1-12.7)
[2019-09-13 20:02] LABS: Alanine Aminotransferase 19 IU/L (<35); Albumin 4.1 g/dL (3.5-5.0); Albumin Globulin Ratio 1.3 (1.0-2.8); Alkaline Phosphatase 39 U/L (38-126); Aspartate Aminotransferase 35 IU/L (14-36); BUN Creatinine Ratio 12.5 (6-22); Bilirubin Total 0.3 mg/dL (0.2-1.3); Blood Urea Nitrogen 15 mg/dL (7-17); Calcium 9.3 mg/dL (8.4-10.2); Carbon Dioxide 25 mmol/L (22-32); Chloride 104 mmol/L (98-107); Creatine Kinase 47 U/L (30-135); Estimated Glomerular Filt Rate 43.1 mL/min (>60); Globulin 3.1 g/dL (1.7-4.1); Glucose 151 mg/dL (80-110); HEMOLYSIS < 15 (0-50); Lipase 84 U/L (23-300); Sodium 138 mmol/L (137-145); Total Protein 7.2 g/dL (6.3-8.2)
[2019-09-13] MEDS: SODIUM CHLORIDE 0.9% 1,000 ML 150 ML IV (20:02)
[2019-09-13 20:03] LABS: Lactate (Lactic Acid) 0.8 mmol/L (0.7-2.1); PTT Partial Thromboplastin Tim 28 SECONDS (26.4-36.2)
[2019-09-13 20:10] VITALS: TEMP 37.1
[2019-09-13 20:30] VITALS: BP 129/79; PULSE 78; RESP 18; O2SAT 99
[2019-09-13 20:38] LABS: Procalcitonin 0.07 ng/mL (<0.5)
[2019-09-13] MEDS: OSELTAMIVIR 75 MG CAPSULE PO (20:39)
[2019-09-13 21:00] VITALS: BP 131/59; PULSE 73
== END 2019-09-13 21:02 | disposition home or self-care (01) ==
PROVIDERS: Emergency Provider Emergency Medicine; Family Provider Family Medicine; PCP Family Medicine
DX: J10.1 Influenza due to other identified influenza virus with other respiratory manifestations (principal); R55 Syncope and collapse
CPT/HCPCS: 36415; 71045; 80053; 82550; 83605; 83690; 84145; 84484; 85025; 85610; 85730; 87040; 87502; 93005; 96360; 99284; 99285

== ENCOUNTER 2023-07-26 15:33 | Emergency (ER) | payer MEDICARE, SELFPAY ==
[2023-07-26] VITALS (7 sets, daily range): BP systolic 155–179; BP diastolic 70–88; PULSE 64–74; RESP 18–30; TEMP 37.2; O2SAT 99–100; BMI 22.2
--- NOTE | 2023-07-26 15:40 | DI.RAD.S_ITS ---
PROCEDURE: XR CHEST 1V INDICATIONS: chest pain TECHNIQUE: One view of the chest was acquired. COMPARISON: [facility], CR, XR CHEST 1V, 09/15/2018, 22:59. [facility], CR, XR CHEST 1V, 09/13/2019, 19:18. FINDINGS: Surgical changes and devices: None. Lungs and pleura: On this semiupright portable chest examination, no large pneumothorax or large pleural effusions are seen. No focal infiltrates are seen. Low lung volumes are noted. This causes a crowded appearance to the lung markings and limits evaluation. Mediastinum: The cardiac contours are within normal limits. The aorta demonstrates calcification and tortuosity. Bones and chest wall: No suspicious bony lesions. Age-appropriate bony degenerative changes are seen. Overlying soft tissues appear unremarkable. IMPRESSION: Portable chest within normal limits for age. Dictated by: Sanket Fuchs M.D. on 07/26/2023 at 15:20 Approved by: Sanket Fuchs M.D. on 07/26/2023 at 15:21
--- NOTE | 2023-07-26 15:44 | PC.NURSE ---
Pt's daughter reports that pt had similar episode four years ago where she was leaning over chopping vegetables and developed sudden CP. Nothing was found at the ER visit. This time pt was earlier today leaning over the same way. Pt added that last night while laying down she developed CP which went away on it's own. Pt denies SOB, palpitations or feeling dizzy at that time.
[2023-07-26 15:52] LABS: Add Manual Diff / Slide Review NO; Basophils Absolute Auto 100 /uL (0-100); Basophils Percent Auto 0.7 % (0-2); Eosinophils Absolute Auto 200 /uL (0-450); Eosinophils Percent Auto 2.5 % (2-4); Hematocrit 30.4 % (36-46); Hemoglobin 10.2 g/dL (12.0-16.0); Lymphocytes Absolute Auto 4700 /uL (1100-4500); Lymphocytes Percent Auto 49.1 % (25-40); Mean Corpuscular HGB Conc 33.7 % (30-36); Mean Corpuscular Hemoglobin 31.7 PG (26-34); Mean Corpuscular Volume 94.1 fL (80-100); Monocytes Absolute Auto 500 /uL (0-900); Monocytes Percent Auto 5.6 % (3-14); Neutrophils Absolute Auto 4100 /uL (1500-7000); Neutrophils Percent Auto 42.1 % (50-75); Platelet Count 219 X10^3/uL (150-400); Red Blood Cell Count 3.23 X10^6/uL (4.0-5.2); Red Cell Distribution Width 12.8 % (11.6-14.8); White Blood Cell Count 9.6 X10^3/uL (4.5-11.0)
[2023-07-26 16:00] LABS: INR 0.9 (0.9-1.3); Prothrombin Time 10.5 SECONDS (9.4-12.5)
[2023-07-26 16:03] LABS: PTT Partial Thromboplastin Tim 29 SECONDS (25.1-36.5)
[2023-07-26 16:05] LABS: Alanine Aminotransferase 20 IU/L (<35); Albumin 3.9 g/dL (3.5-5.0); Albumin Globulin Ratio 1.3 (1.0-2.8); Alkaline Phosphatase 51 U/L (38-126); Aspartate Aminotransferase 27 IU/L (14-36); Bilirubin Total 0.4 mg/dL (0.2-1.3); Blood Urea Nitrogen 34 mg/dL (7-17); Calcium 9.4 mg/dL (8.4-10.2); Carbon Dioxide 25 mmol/L (22-32); Chloride 106 mmol/L (98-107); Creatine Kinase 30 U/L (30-135); Glucose 198 mg/dL (80-110); HEMOLYSIS < 15 (0-50); Lipase 405 U/L (23-300); Magnesium 1.8 mg/dL (1.6-2.3); Potassium 4.3 mmol/L (3.4-5.1); Sodium 142 mmol/L (137-145); Total Protein 6.9 g/dL (6.3-8.2)
[2023-07-26 16:17] LABS: Troponin I < 0.012 ng/mL (0.01-0.034)
[2023-07-26 16:21] LABS: BUN Creatinine Ratio 29.8 (6-22); Estimated Glomerular Filt Rate 47 mL/min (>60)
--- NOTE | 2023-07-26 18:10 | ED.CHESTPAIN ---
HPI - Chest Pain General Chief Complaint: Chest Pain Stated Complaint: Chest Pain Time Seen by Provider: 07/26/23 17:26 Source: patient Mode of arrival: Ambulatory Limitations: no limitations History of Present Illness HPI narrative: 87-year-old woman with a history of diabetes, hypertension, hyperlipidemia and no prior cardiac events of what she is aware was quietly sitting this morning knitting when she experience right-sided substernal chest pain nonradiating not associated with nausea, diaphoresis or dyspnea. She has not had any recent exertional dyspnea. has never experienced chest pain like this previously. No associated fever, cough, abdominal pain or diarrhea. Related Data Home Medications Medication Instructions Recorded Confirmed calcium carb-vit D3-magnesium 250 2 cap PO DAILY 04/21/19 04/21/19 mg-200 unit-125 mg capsule glipizide 10 mg tablet 10 mg PO BID 04/21/19 04/21/19 losartan 50 mg tablet 50 mg PO BID 04/21/19 04/21/19 lovastatin 40 mg tablet 40 mg PO DAILY 04/21/19 04/21/19 metformin 500 mg tablet 1,000 mg PO BID 04/21/19 04/21/19 metoprolol tartrate 25 mg tablet 25 mg PO BID 04/21/19 04/21/19 pioglitazone 15 mg tablet 15 mg PO DAILY 04/21/19 04/21/19 Previous Rx's Medication Instructions Recorded oseltamivir 30 mg capsule (Tamiflu) 30 mg PO DAILY #4 caps 09/13/19 Allergies Allergy/AdvReac Type Severity Reaction Status Date / Time lisinopril Allergy Verified 04/21/19 21:39 Penicillins Allergy Verified 04/21/19 21:39 Review of Systems Review of Systems Narrative: Pertinent positive and negative findings as per HPI Patient History Medical History (Updated 07/26/23 @ 18:[address] MD) Hypertension Mild nonproliferative diabetic retinopathy (05/26/14) Cataract (04/20/14) Mild aortic sclerosis (04/20/14) Vitamin D deficiency (07/04/13) Cobalamin deficiency (07/04/13) Stage 3 chronic kidney disease (07/04/13) Surgical History Status post appendectomy Family History Mother Diabetes mellitus Social History Smoking Status: Never smoker Smoking Status: Never smoker alcohol intake frequency: holidays/special occasions only Substance Use Type: does not use Exam Initial Vital Signs Initial Vital Signs: Vital Signs Temperature 98.9 F 07/26/23 15:36 Pulse Rate 74 07/26/23 15:36 Respiratory Rate 18 07/26/23 15:36 Blood Pressure 163/70 H 07/26/23 15:36 Pulse Oximetry 100 07/26/23 15:36 Oxygen Delivery Method Room Air 07/26/23 15:36 General: Frail appearing, in no acute distress. Able to give a complete and coherent history. HEENT: Moist mucous membranes, normal sclera with reactive pupils, Neck: No JVD, supple Respiratory: Lungs are clear to auscultation, no wheezing no rales no rhonchi. Full and symmetrical air movement Chest: No reproducible tenderness with palpation along sternal borders or ribcage. No skin changes Cardiac: Regular rate and rhythm no murmurs no bruits Abdomen: Soft, nontender, good bowel tones, no flank pain Skin: Warm and dry, no rashes Neurologic: Grossly neurologically intact with no obvious asymmetries or abnormalities Extremities: No trauma, well perfused Psych: Cooperative, appropriate insight and affect Course Orders Ordered: ED Orders 07/26/23 15:40 XR chest 1V Stat EKG-12 Lead Stat 07/26/23 15:45 Complete Blood Count AUTO DIFF Stat Comprehensive Metabolic Panel Stat Lipase Stat Magnesium Stat PTT Partial Thromboplastin [place] Stat Prothrombin Time INR Stat Troponin & CK Cardiac Panel Stat 07/26/23 17:45 Trop I [Troponin I] Stat Discontinued Medications Aspirin (Aspirin 81 Mg Chew Tab) 324 mg PO NOW ONE Stop: 07/26/23 15:41 Last Admin: 07/26/23 16:00 Dose: Not Given Documented By: OW Vital Signs Vital signs: Vital Signs - 8 hr 07/26/23 15:36 07/26/23 15:39 07/26/23 16:43 Temperature 98.9 F Pulse Rate 74 73 69 Respiratory Rate 18 20 22 Blood Pressure 163/70 H 163/70 H 166/73 H Pulse Oximetry 100 99 99 Oxygen Delivery Method Room Air Room Air Room Air 07/26/23 17:00 Temperature Pulse Rate 65 Respiratory Rate 18 Blood Pressure 155/71 H Pulse Oximetry 100 Oxygen Delivery Method Room Air MDM - Chest Pain Lab Data 07/26/23 15:45 07/26/23 15:45 Labs: Lab Results 07/26/23 Range/Units 15:45 WBC 9.6 (4.5-11.0) X10^3/uL RBC 3.23 L (4.0-5.2) X10^6/uL Hgb 10.2 L (12.0-16.0) g/dL Hct 30.4 L (36-46) % MCV 94.1 (80-100) fL MCH 31.7 (26-34) PG MCHC 33.7 (30-36) % RDW 12.8 (11.6-14.8) % Plt Count 219 (150-400) X10^3/uL Neut % (Auto) 42.1 L (50-75) % Lymph % (Auto) 49.1 H (25-40) % [place] % (Auto) 5.6 (3-14) % Eos % (Auto) 2.5 (2-4) % Baso % (Auto) 0.7 (0-2) % Neut # (Auto) 4100 (5495-5062) /uL Lymph # (Auto) 4700 H (8091-7666) /uL [place] # (Auto) 500 (0-900) /uL Eos # (Auto) 200 (0-450) /uL Baso # (Auto) 100 (0-100) /uL PT 10.5 (9.4-12.5) SECONDS INR 0.9 (0.9-1.3) APTT 29 (25.1-36.5) SECONDS Sodium 142 (137-145) mmol/L Potassium 4.3 (3.4-5.1) mmol/L Chloride 106 (98-107) mmol/L Carbon Dioxide 25 (22-32) mmol/L BUN 34 H (7-17) mg/dL Creatinine 1.14 H (0.52-1.04) mg/dL Estimated GFR 47 L (>60) mL/min BUN/Creatinine Ratio 29.8 H (6-22) Glucose 198 H (80-110) mg/dL Calcium 9.4 (8.4-10.2) mg/dL Magnesium 1.8 (1.6-2.3) mg/dL Total Bilirubin 0.4 (0.2-1.3) mg/dL AST 27 (14-36) IU/L ALT 20 (<35) IU/L Alkaline Phosphatase 51 (38-126) U/L Total Creatine Kinase 30 (30-135) U/L Troponin I < 0.012 (0.01-0.034) ng/mL Total Protein 6.9 (6.3-8.2) g/dL Albumin 3.9 (3.5-5.0) g/dL Globulin 3.0 (1.7-4.1) g/dL Albumin/Globulin Ratio 1.3 (1.0-2.8) Lipase 405 H (23-300) U/L MDM Narrative Medical decision making narrative: CC: Chest pain Complicating co-morbidities: Diabetes, hypertension, hyperlipidemia Data collected from: patient Differential considered: Acute coronary syndrome, pneumothorax, pneumonia, gallbladder colic, esophageal spasm Exam documented above, pertinent findings include: Exam is entirely unremarkable. Pain has completely resolved. There is no pain with palpation along chest wall or thorax Lab Test results independently reviewed as above. Pertinent findings: CBC is reassuring, chronic stable anemia Metabolic panel shows mild renal insufficiency, at her baseline, lipase slightly elevated at 405 Initial troponin is undetectable as is repeat troponin 2 hours Independently reviewed EKG: EKG shows sinus rhythm at a rate of 73. Normal intervals, normal axis. No acute ischemic changes Imaging studies independently reviewed: Chest x-rays reviewed. No pneumothorax, infiltrates, widened mediastinum or cardiomegaly Treatments: She was given aspirin on arrival Re-evaluations: After initial blood work is back all findings reviewed with the patient. We are currently waiting for 2nd troponin. If this is unremarkable given her completely benign exam and workup will be discharged Discussion: 87-year-old woman with short episode of right sternal border chest pain. Exam is entirely benign. She has absolutely no abdominal pain. No pain with palpation. Pain resolved spontaneously. At this point I do not suspect acute coronary syndrome, dissection, gallbladder disease, pneumonia, pleurisy, shingles. Her heart score is 4 based on risk factors and age alone. I do not have a complete explanation for her pain but it has resolved at this point and life-threatening etiologies have been excluded and there is no indication for additional imaging, lab work or hospitalization. All of this is reviewed with her family and she will be discharged home. Questions are fully answered for patient and her family members. Discharge Plan Departure Patient Disposition: Home Clinical Impression: Atypical chest pain Instructions: DI for Atypical Chest Pain Activity Restrictions/Additional Instructions: Thank you for coming in today Your physical exam was very reassuring. I am pleased that this pain in your chest has completely gone away. Your workup does not suggest heart attack, collapsed lung, pneumonia, gallbladder disease or other explanation that would require hospitalization or further workup today. It is safe for you to go home. You can continue all of your usual activities If you find that you are getting worse or develop any new symptoms, please feel free to return to the emergency department for further evaluation. Prescriptions: No Action losartan 50 mg tablet 50 mg PO BID Patient Comments: TK 1 T PO BID pioglitazone 15 mg tablet 15 mg PO DAILY Patient Comments: TK 1 T PO D metformin 500 mg tablet 1,000 mg PO BID Patient Comments: TK 2 TS PO BID glipizide 10 mg tablet 10 mg PO BID Patient Comments: TK 1 T PO BID lovastatin 40 mg tablet 40 mg PO DAILY Patient Comments: TK 1 T PO D metoprolol tartrate 25 mg tablet 25 mg PO BID calcium carb-vit D3-magnesium 250-200-125 mg-unit-mg Capsule 2 cap PO DAILY oseltamivir [Tamiflu] 30 mg capsule 30 mg PO DAILY Qty: 4 0RF Rx Instructions: 1st dose in ED. Creatinine Clearance 26-31 Referrals: Amiar Rivera MD [Primary Care Provider] - Stand Alone Forms: Patient Portal/API
[2023-07-26 18:19] LABS: Troponin I < 0.012 ng/mL (0.01-0.034)
== END 2023-07-26 18:48 | disposition home or self-care (01) ==
PROVIDERS: Emergency Medicine; Emergency Provider Emergency Medicine; Family Provider Family Medicine; PCP Internal Medicine
DX: R07.89 Other chest pain (principal); Z79.899 Other long term (current) drug therapy
CPT/HCPCS: 36415; 71045; 80053; 82550; 83690; 83735; 84484; 85025; 85610; 85730; 93005; 99284